=== PATIENT | female | born 1990 | race Caucasian/White ===

== ENCOUNTER 2016-05-21 23:56 | Emergency (ER) | payer OTHER ==
[~2016-05-21] VITALS: Ht 162.6 cm; Wt 73.4 kg
[~2016-05-21 23:56] MED LIST: BACTRIM,SEPT1 TABLET PO; BUSPAR5 MG PO; CEPHALEXIN250 MG PO; CIPRO500 MG PO; FLONASE16 G1 BOTH NARES; GEMFIBROZIL600 MG PO; HUMALOG100 UNIT/1 SC; INSULIN PUMP SCCONT; LISINOPRIL2.5 MG PO; MONTELUKAST SOD10 MG PO; MULTIVITAMIN1 EAC2 PO; MYCOPHENOLATE250 MG PO; NORCO 5/3251 TABLET PO; OMEPRAZOLE20 MG PO; OXAYDO5 MG PO; PERCOCET 5/31 TABLET PO; PRENATAL TABLE1 EAC3 PO; PYRIDIUM100 MG PO; ROXICODONE5 MG PO; SIROLIMUS2 MG PO; TRAMADOL HCL50 MG PO; VIORELE 28 DAY1 EACH PO; VITAMIN E400 UNIT PO; ZOFRAN ODT4 MG PO; ZOFRAN4 MG PO; ZOLOFT25 MG PO
[2016-05-22 00:34] LABS: HEMATOCRIT 41.1 % (36.0-46.0); MCH 26.9 PG (29.0-34.0); MCHC 34.1 G/DL (30.0-36.0); MCV 78.9 FL (83-99); PLATELET COUNT 345 K/uL (156-360); RBC DIS.WIDTH-CV 13.6 % (11.8-14.6); RBC DIS.WIDTH-SD 38.7 % (39-53); RED BLOOD COUNT 5.21 M/uL (3.80-5.20); WHITE BLOOD COUNT 7.2 K/uL (4.1-10.2)
[2016-05-22 00:36] LABS: ADD MIUA? YES; BILIRUBIN NEGATIVE; BLOOD NEGATIVE; COLOR YELLOW ((YELLOW)); GLUCOSE (STRIP) NEGATIVE; KETONES NEGATIVE; LEUKOCYTES SMALL; NITRITE NEGATIVE; PH, URINE 6.5 (5-8); PROTEIN (STRIP) NEGATIVE; SPECIFIC GRAVITY 1.018 (1.000-1.030); UROBILINOGEN 0.2 MG/DL (0.2-1.0)
[2016-05-22 00:44] LABS: CHLORIDE 100 mEq/L (99-109); POTASSIUM 4.3 mEq/L (3.7-5.4); SODIUM 135 mEq/L (136-147)
[2016-05-22 00:47] LABS: GLUCOSE 237 mg/dL (70-99)
[2016-05-22 00:48] LABS: ANION GAP 12 MEQ/L (2-14)
[2016-05-22 00:49] LABS: TOTAL BILIRUBIN 0.4 mg/dL (0.0-1.0)
[2016-05-22 00:50] LABS: ALKALINE PHOSPHATASE 278 IU/L (3-129); GFR ESTIMATE (CALCULATED) > 59 mL/min/
[2016-05-22 00:51] LABS: UREA NITROGEN (BUN) 14 mg/dL (9-23)
[2016-05-22 00:57] LABS: BACTERIA RARE; CASTS NONE SEEN /LPF; CRYSTALS NONE SEEN; EPITHELIAL CELLS RARE; MUCUS NONE SEEN; RED BLOOD CELLS NONE SEEN /HPF (0-5); UCUL ADDED? NO; WHITE BLOOD CELLS 0-5 /HPF (0-5)
[2016-05-22 00:59] LABS: QUANTITATIVE HCG < 4.0 MIU/ML
[2016-05-22 02:05] LABS: LIPASE 43 U/L (1.0-51.0)
[2016-05-22 02:46] LABS: CARBON DIOXIDE (BICARBONATE) 27.3 MEQ/L (20-31)
[2016-05-22 03:01] LABS: POINT-OF-CARE METER ID UU13113778; POINT-OF-CARE USER ID 611181311
[2016-05-22] MEDS ORDERED: PEPCID20 MG PO (03:31)
[2016-05-22 04:27] VITALS: BP 121/83
[2016-05-22 04:28] LABS: POINT-OF-CARE METER ID UU13113778; POINT-OF-CARE USER ID 611181311
== END 2016-05-22 04:27 | disposition home or self-care (01) ==
LOC: EME 23:56 → EXP 23:56
PROVIDERS: Emergency Medicine
DX: E11.65 Type 2 diabetes mellitus with hyperglycemia (principal); K29.70 Gastritis, unspecified, without bleeding; Z96.41 Presence of insulin pump (external) (internal); Z94.0 Kidney transplant status; Z79.4 Long term (current) use of insulin; Z88.6 Allergy status to analgesic agent
CPT/HCPCS: 74176; 80053; 81003; 82009; 82803; 82948; 83690; 84702; 85027; 99281; 99284; J7030; S0028

== ENCOUNTER 2016-07-04 13:37 | Emergency (ER) | payer OTHER ==
[~2016-07-04] VITALS: Ht 162.6 cm; Wt 71.0 kg
[~2016-07-04 13:37] MED LIST changes: +PEPCID20 MG PO
[2016-07-04 15:17] LABS: HEMATOCRIT 45.2 % (36.0-46.0); MCH 26.3 PG (29.0-34.0); MCV 79.9 FL (83-99); MEAN PLAT.VOLUME 11.1 uM^3 (9.5-12.4); PLATELET COUNT 295 K/uL (156-360); RBC DIS.WIDTH-CV 14.1 % (11.8-14.6); RBC DIS.WIDTH-SD 40.7 % (39-53); RED BLOOD COUNT 5.66 M/uL (3.80-5.20); WHITE BLOOD COUNT 4.9 K/uL (4.1-10.2)
[2016-07-04 15:21] LABS: POTASSIUM ND MEQ/L (3.7-5.4)
[2016-07-04 15:26] LABS: CHLORIDE 104 mEq/L (99-109); SODIUM 138 mEq/L (136-147)
[2016-07-04 15:28] LABS: GLUCOSE 140 mg/dL (70-99)
[2016-07-04 15:29] LABS: ANION GAP 11 MEQ/L (2-14)
[2016-07-04 15:32] LABS: GFR ESTIMATE (CALCULATED) > 59 mL/min/
[2016-07-04 15:33] LABS: UREA NITROGEN (BUN) 8 mg/dL (9-23)
[2016-07-04 15:40] LABS: QUANTITATIVE HCG < 4.0 MIU/ML
[2016-07-04 15:43] LABS: ADD MIUA? YES; BILIRUBIN NEGATIVE; BLOOD NEGATIVE; COLOR YELLOW ((YELLOW)); GLUCOSE (STRIP) NEGATIVE; KETONES NEGATIVE; LEUKOCYTES NEGATIVE; NITRITE NEGATIVE; PROTEIN (STRIP) NEGATIVE; SPECIFIC GRAVITY 1.016 (1.000-1.030); UROBILINOGEN 0.2 MG/DL (0.2-1.0)
[2016-07-04 15:58] LABS: BACTERIA NONE SEEN /HPF; EPITHELIAL CELLS 1+ /HPF; MUCUS TRACE /LPF; RED BLOOD CELLS 0-5 /HPF (0-5); UCUL ADDED? NO; WHITE BLOOD CELLS 0-5 /HPF (0-5)
[2016-07-04 16:06] LABS: CARBON DIOXIDE (BICARBONATE) 27.3 MEQ/L (20-31)
[2016-07-04 16:12] LABS: POTASSIUM 4.2 mEq/L (3.7-5.4)
[2016-07-04 17:03] LABS: DIRECT BILIRUBIN 0.1 mg/dL (0.0-0.3); TOTAL BILIRUBIN 0.6 MG/DL (0.0-1.0)
[2016-07-04 17:20] LABS: ALKALINE PHOSPHATASE 319 IU/L (3-129)
[2016-07-04 18:52] LABS: POINT-OF-CARE METER ID UU13113702
[2016-07-04] MEDS ORDERED: OXYCODONE HCL5 MG PO (19:04)
[2016-07-04] MEDS ORDERED: MIRALAX255 GM PO (19:04)
[2016-07-04 20:21] VITALS: BP 113/69
== END 2016-07-04 20:34 | disposition home or self-care (01) ==
LOC: EME 13:37
PROVIDERS: Emergency Medicine; Nurse Practitioner Family
DX: R10.9 Unspecified abdominal pain (principal); K59.00 Constipation, unspecified; E11.9 Type 2 diabetes mellitus without complications; Z94.0 Kidney transplant status; Z96.41 Presence of insulin pump (external) (internal); Z79.4 Long term (current) use of insulin
CPT/HCPCS: 74020; 74176; 80048; 80076; 81003; 82010; 82803; 82948; 84702; 84999; 85027; 87077; 87086; 87502; 99281; 99284; J2405; J3010; J7030

== ENCOUNTER 2016-09-07 01:32 | Emergency (ER) | payer OTHER ==
[~2016-09-07] VITALS: Ht 162.6 cm; Wt 71.8 kg
[~2016-09-07 01:32] MED LIST changes: +MIRALAX255 GM PO; +OXYCODONE HCL5 MG PO
[2016-09-07 02:22] LABS: EOSINOPHIL (%) 0.8 % (0-5); EOSINOPHIL COUNT 0.1 K/uL (0-0.3); HEMATOCRIT 42.8 % (36.0-46.0); IMMATURE GRANULOCYTE (%) 0.2 % (0.0-0.7); INSTRUMENT ABS NEUTROPHIL CT 2.7 K/uL; MCH 26.3 PG (29.0-34.0); MCHC 32.9 G/DL (30.0-36.0); MCV 79.7 FL (83-99); MEAN PLAT.VOLUME 11.1 uM^3 (9.5-12.4); MONOCYTE (%) 11.5 % (3-12); MONOCYTE COUNT 0.8 K/uL (0-0.8); NEUTROPHIL (%) 41.4 % (45-76); NEUTROPHIL COUNT 2.7 K/uL (1.8-6.4); PLATELET COUNT 294 K/uL (156-360); RBC DIS.WIDTH-CV 13.6 % (11.8-14.6); RBC DIS.WIDTH-SD 39.4 % (39-53); RED BLOOD COUNT 5.37 M/uL (3.80-5.20); WHITE BLOOD COUNT 6.6 K/uL (4.1-10.2)
[2016-09-07 02:32] LABS: CHLORIDE 106 mEq/L (99-109); POTASSIUM 4.1 mEq/L (3.7-5.4); SODIUM 136 mEq/L (136-147)
[2016-09-07 02:34] LABS: GLUCOSE 241 mg/dL (70-99)
[2016-09-07 02:35] LABS: ANION GAP 10 MEQ/L (2-14)
[2016-09-07 02:38] LABS: GFR ESTIMATE (CALCULATED) > 59 mL/min/
[2016-09-07 02:39] LABS: UREA NITROGEN (BUN) 15 mg/dL (9-23)
[2016-09-07 02:46] LABS: QUANTITATIVE HCG < 4.0 MIU/ML
[2016-09-07 03:27] LABS: ADD MIUA? YES; BILIRUBIN NEGATIVE; BLOOD NEGATIVE; COLOR YELLOW ((YELLOW)); GLUCOSE (STRIP) 50; KETONES NEGATIVE; LEUKOCYTES SMALL; NITRITE NEGATIVE; PROTEIN (STRIP) NEGATIVE; SPECIFIC GRAVITY 1.017 (1.000-1.030); UROBILINOGEN 0.2 MG/DL (0.2-1.0)
[2016-09-07 03:29] LABS: BACTERIA NONE SEEN /HPF; EPITHELIAL CELLS 1+ /HPF; MUCUS NONE SEEN /LPF; RED BLOOD CELLS 0-5 /HPF (0-5); WHITE BLOOD CELLS 0-5 /HPF (0-5)
[2016-09-07] MEDS ORDERED: OXYCODONE HCL5 MG PO (03:39)
[2016-09-07 04:17] VITALS: BP 135/60
== END 2016-09-07 04:18 | disposition home or self-care (01) ==
LOC: EME 01:32 → EXP 01:32
PROVIDERS: Physician Assistant
DX: M54.5 Low back pain (principal); R53.83 Other fatigue; R68.83 Chills (without fever); Q61.3 Polycystic kidney, unspecified; E11.9 Type 2 diabetes mellitus without complications; Z96.41 Presence of insulin pump (external) (internal); Z79.4 Long term (current) use of insulin; Z94.0 Kidney transplant status
CPT/HCPCS: 80048; 81003; 84702; 85025; 99281; 99283

== ENCOUNTER 2016-12-10 21:24 | Emergency (ER) | payer OTHER ==
[~2016-12-10] VITALS: Ht 162.6 cm; Wt 72.1 kg
[2016-12-10 22:53] LABS: ADD MIUA? YES; BILIRUBIN NEGATIVE; BLOOD NEGATIVE; COLOR YELLOW ((YELLOW)); GLUCOSE (STRIP) NEGATIVE; KETONES NEGATIVE; LEUKOCYTES SMALL; NITRITE NEGATIVE; PROTEIN (STRIP) 30; SPECIFIC GRAVITY 1.025 (1.000-1.030); UROBILINOGEN 0.2 MG/DL (0.2-1.0)
[2016-12-10 23:01] LABS: BACTERIA RARE /HPF; EPITHELIAL CELLS 2+ /HPF; MUCUS TRACE /LPF; RED BLOOD CELLS 0-5 /HPF (0-5); UCUL ADDED? YES
[2016-12-10] MEDS ORDERED: CIPRO500 MG PO (23:19)
[2016-12-10] MEDS ORDERED: ULTRAM50 MG PO (23:24)
[2016-12-10 23:42] VITALS: BP 115/82
== END 2016-12-10 23:44 | disposition home or self-care (01) ==
LOC: EME 21:24
PROVIDERS: Physician Assistant Medical
DX: N39.0 Urinary tract infection, site not specified (principal); Z94.0 Kidney transplant status; E11.9 Type 2 diabetes mellitus without complications; Z96.41 Presence of insulin pump (external) (internal)
CPT/HCPCS: 81003; 87086; 99281; 99284

== ENCOUNTER 2016-12-12 18:22 | Emergency (ER) | payer OTHER ==
[~2016-12-12] VITALS: Ht 162.6 cm; Wt 72.8 kg
[~2016-12-12 18:22] MED LIST changes: +ULTRAM50 MG PO
[2016-12-12 19:21] LABS: HEMATOCRIT 43.1 % (36.0-46.0); MCH 26.3 PG (29.0-34.0); MCHC 32.9 G/DL (30.0-36.0); MCV 79.8 FL (83-99); MEAN PLAT.VOLUME 11.2 uM^3 (9.5-12.4); PLATELET COUNT 267 K/uL (156-360); RBC DIS.WIDTH-CV 13.4 % (11.8-14.6); RBC DIS.WIDTH-SD 38.5 % (39-53); WHITE BLOOD COUNT 5.3 K/uL (4.1-10.2)
[2016-12-12 19:31] LABS: ADD MIUA? YES; BILIRUBIN NEGATIVE; BLOOD NEGATIVE; COLOR YELLOW ((YELLOW)); GLUCOSE (STRIP) >=500; KETONES NEGATIVE; LEUKOCYTES NEGATIVE; NITRITE NEGATIVE; PROTEIN (STRIP) NEGATIVE; SPECIFIC GRAVITY 1.014 (1.000-1.030); UROBILINOGEN 0.2 MG/DL (0.2-1.0)
[2016-12-12 19:35] LABS: CHLORIDE 104 mEq/L (99-109); POTASSIUM 4.1 mEq/L (3.7-5.4); SODIUM 136 mEq/L (136-147)
[2016-12-12 19:35] LABS: BACTERIA RARE /HPF; EPITHELIAL CELLS RARE /HPF; MUCUS TRACE /LPF; RED BLOOD CELLS 0-5 /HPF (0-5); UCUL ADDED? NO; WHITE BLOOD CELLS 0-5 /HPF (0-5)
[2016-12-12 19:37] LABS: GLUCOSE 274 mg/dL (70-99)
[2016-12-12 19:38] LABS: ANION GAP 10 MEQ/L (2-14)
[2016-12-12 19:39] LABS: TOTAL BILIRUBIN 0.9 mg/dL (0.0-1.0)
[2016-12-12 19:40] LABS: ALKALINE PHOSPHATASE 288 IU/L (3-129)
[2016-12-12 19:41] LABS: GFR ESTIMATE (CALCULATED) > 59 mL/min/
[2016-12-12 19:42] LABS: UREA NITROGEN (BUN) 8 mg/dL (9-23)
[2016-12-12 19:50] LABS: QUANTITATIVE HCG < 4.0 MIU/ML
[2016-12-12] MEDS ORDERED: ROXICODONE5 MG PO (21:34)
[2016-12-12 21:54] VITALS: BP 115/75
== END 2016-12-12 22:17 | disposition home or self-care (01) ==
LOC: EME 18:22
PROVIDERS: Physician Assistant
DX: R10.9 Unspecified abdominal pain (principal); G89.29 Other chronic pain; K73.9 Chronic hepatitis, unspecified; E11.65 Type 2 diabetes mellitus with hyperglycemia; Q61.3 Polycystic kidney, unspecified; Z79.4 Long term (current) use of insulin; Z94.0 Kidney transplant status; Z88.5 Allergy status to narcotic agent
CPT/HCPCS: 74176; 80053; 81003; 84702; 85027; 87086; 99281; 99284

== ENCOUNTER 2017-01-16 12:42 | Emergency (ER) | payer OTHER ==
[~2017-01-16] VITALS: Ht 162.6 cm; Wt 70.9 kg
[2017-01-16] MEDS ORDERED: LORTAB 5-325 M1 EACH PO (16:09)
[2017-01-16 16:13] VITALS: BP 122/74
== END 2017-01-16 16:22 | disposition home or self-care (01) ==
LOC: EME 12:42
DX: S93.402A Sprain of unspecified ligament of left ankle, initial encounter (principal); Z94.0 Kidney transplant status; W10.9XXA Fall (on) (from) unspecified stairs and steps, initial encounter; E11.9 Type 2 diabetes mellitus without complications; Z79.4 Long term (current) use of insulin; Q61.3 Polycystic kidney, unspecified; Z88.6 Allergy status to analgesic agent
CPT/HCPCS: 73610; 73630; 99281; 99284

== ENCOUNTER 2017-02-15 00:20 | Emergency (ER) | payer OTHER ==
[~2017-02-15] VITALS: Ht 162.6 cm; Wt 70.9 kg
[~2017-02-15 00:20] MED LIST changes: +LORTAB 5-325 M1 EACH PO
[2017-02-15 00:48] LABS: ADD MIUA? NO; BILIRUBIN NEGATIVE; BLOOD NEGATIVE; COLOR COLORLESS ((YELLOW)); GLUCOSE (STRIP) NEGATIVE; KETONES NEGATIVE; LEUKOCYTES NEGATIVE; NITRITE NEGATIVE; PROTEIN (STRIP) NEGATIVE; SPECIFIC GRAVITY 1.003 (1.000-1.030); UCUL ADDED? NO; UROBILINOGEN 0.2 MG/DL (0.2-1.0)
[2017-02-15 00:57] LABS: HEMATOCRIT 43.5 % (36.0-46.0); MCH 26.2 PG (29.0-34.0); MCHC 32.6 G/DL (30.0-36.0); MCV 80.1 FL (83-99); MEAN PLAT.VOLUME 10.6 uM^3 (9.5-12.4); PLATELET COUNT 315 K/uL (156-360); RBC DIS.WIDTH-CV 13.6 % (11.8-14.6); RBC DIS.WIDTH-SD 38.7 % (39-53); RED BLOOD COUNT 5.43 M/uL (3.80-5.20); WHITE BLOOD COUNT 6.9 K/uL (4.1-10.2)
[2017-02-15 01:19] LABS: CHLORIDE 101 mEq/L (99-109); POTASSIUM 3.7 mEq/L (3.7-5.4); SODIUM 136 mEq/L (136-147)
[2017-02-15 01:21] LABS: GLUCOSE 200 mg/dL (70-99)
[2017-02-15 01:23] LABS: ANION GAP 13 MEQ/L (2-14); TOTAL BILIRUBIN 0.4 mg/dL (0.0-1.0)
[2017-02-15 01:25] LABS: ALKALINE PHOSPHATASE 332 IU/L (3-129); GFR ESTIMATE (CALCULATED) > 59 mL/min/
[2017-02-15 01:26] LABS: UREA NITROGEN (BUN) 8 mg/dL (9-23)
[2017-02-15 01:35] LABS: QUANTITATIVE HCG < 4.0 MIU/ML
[2017-02-15] MEDS ORDERED: COLACE100 MG PO (03:20)
[2017-02-15] MEDS ORDERED: BENTYL10 MG PO (03:20)
[2017-02-15 03:22] VITALS: BP 121/82
== END 2017-02-15 03:24 | disposition home or self-care (01) ==
LOC: EXP 00:20 → EME 00:20 → EXP 03:24
DX: R10.30 Lower abdominal pain, unspecified (principal); G89.29 Other chronic pain; E11.9 Type 2 diabetes mellitus without complications; Z79.4 Long term (current) use of insulin; Z94.0 Kidney transplant status; F32.9 Major depressive disorder, single episode, unspecified; Z88.8 Allergy status to other drugs, medicaments and biological substances
CPT/HCPCS: 76705; 76856; 80053; 81003; 84702; 85027; 99281; 99284; J3010

== ENCOUNTER → 2017-03-12 | Outpatient (CLI) | payer OTHER ==
[~2017-03-12] MED LIST changes: +BENTYL10 MG PO; +COLACE100 MG PO; +DAILY VALUE1 EACH PO; +PROBIOTIC1 EAC2 PO; +SUPER B COMPL400 MCG PO
[2017-03-12 12:01] LABS: POINT-OF-CARE METER ID UU13113819
== END | disposition home or self-care (01) ==
LOC: OPR 08:15 → EDSTATUS 09:00
PROVIDERS: Internal Medicine
PROC: 0FB13ZX Excision of Right Lobe Liver, Percutaneous Approach, Diagnostic (ICD-10-PCS; principal; 2017-03-12)
DX: K76.0 Fatty (change of) liver, not elsewhere classified (principal); Q61.3 Polycystic kidney, unspecified; Z94.0 Kidney transplant status; E10.9 Type 1 diabetes mellitus without complications; F32.9 Major depressive disorder, single episode, unspecified; Z92.25 Personal history of immunosuppression therapy; Z80.0 Family history of malignant neoplasm of digestive organs
CPT/HCPCS: 77012; 82948; 88307; 88313; J2250; J2310; J3010

== ENCOUNTER 2017-05-03 12:16 | Emergency (ER) | payer OTHER ==
[2017-05-04] MEDS ORDERED: CELEBREX50 MG PO (16:05)
== END 2017-05-03 12:22 | disposition left against medical advice (07) ==
LOC: EME 12:16
DX: M25.562 Pain in left knee (principal); Z53.21 Procedure and treatment not carried out due to patient leaving prior to being seen by health care provider

== ENCOUNTER 2017-05-04 13:43 | Emergency (ER) | payer OTHER ==
[~2017-05-04] VITALS: Ht 162.6 cm; Wt 69.5 kg
[2017-05-04] MEDS ORDERED: CELEBREX50 MG PO (16:05)
[2017-05-04 16:47] VITALS: BP 135/80
== END 2017-05-04 16:50 | disposition home or self-care (01) ==
LOC: EME 13:43
DX: M25.562 Pain in left knee (principal); M54.9 Dorsalgia, unspecified; Q61.3 Polycystic kidney, unspecified; Z94.0 Kidney transplant status
CPT/HCPCS: 73564; 99281; 99284

== ENCOUNTER 2017-05-10 20:58 | Emergency (ER) | payer OTHER ==
[~2017-05-10] VITALS: Ht 162.6 cm; Wt 70.1 kg
[~2017-05-10 20:58] MED LIST changes: +CELEBREX50 MG PO
[2017-05-10 21:41] LABS: HEMATOCRIT 39.9 % (36.0-46.0); HEMOGLOBIN 13.2 G/DL (11.9-15.5); MCH 26.7 PG (29.0-34.0); MCHC 33.1 G/DL (30.0-36.0); MCV 80.6 FL (83-99); PLATELET COUNT 319 K/uL (156-360); RBC DIS.WIDTH-CV 13.4 % (11.8-14.6); RED BLOOD COUNT 4.95 M/uL (3.80-5.20); WHITE BLOOD COUNT 7.5 K/uL (4.1-10.2)
[2017-05-10 21:49] LABS: CHLORIDE 104 mEq/L (99-109); POTASSIUM 4.2 mEq/L (3.7-5.4); SODIUM 135 mEq/L (136-147)
[2017-05-10 21:51] LABS: GLUCOSE 319 mg/dL (70-99)
[2017-05-10 21:54] LABS: CREATININE 0.9 mg/dL (0.6-1.3); GFR ESTIMATE (CALCULATED) > 59 mL/min/
[2017-05-10 21:55] LABS: UREA NITROGEN (BUN) 11 mg/dL (9-23)
[2017-05-10 22:03] LABS: QUANTITATIVE HCG 33.6 MIU/ML
[2017-05-10 22:37] VITALS: BP 140/96
== END 2017-05-10 22:37 | disposition home or self-care (01) ==
LOC: EME 20:58
PROVIDERS: Emergency Medicine
DX: O20.0 Threatened abortion (principal); Z3A.00 Weeks of gestation of pregnancy not specified; E11.9 Type 2 diabetes mellitus without complications; F32.9 Major depressive disorder, single episode, unspecified; Q61.3 Polycystic kidney, unspecified; Z79.4 Long term (current) use of insulin; Z96.41 Presence of insulin pump (external) (internal); Z94.0 Kidney transplant status; Z88.5 Allergy status to narcotic agent; Z88.8 Allergy status to other drugs, medicaments and biological substances
CPT/HCPCS: 80048; 84702; 85027; 99281; 99283

== ENCOUNTER 2017-12-08 22:37 | Emergency (ER) | payer OTHER ==
[~2017-12-08] VITALS: Ht 160 cm; Wt 71.3 kg
[2017-12-09 00:45] LABS: APPEARANCE CLEAR ((CLEAR)); BILIRUBIN NEGATIVE; BLOOD NEGATIVE; COLOR AMBER ((YELLOW)); GLUCOSE (STRIP) NEGATIVE; KETONES NEGATIVE; LEUKOCYTES NEGATIVE; NITRITE POSITIVE; PROTEIN (STRIP) NEGATIVE; SPECIFIC GRAVITY 1.016 (1.000-1.030)
[2017-12-09 00:51] LABS: BACTERIA NONE SEEN /HPF; EPITHELIAL CELLS RARE /HPF; MUCUS TRACE /LPF; RED BLOOD CELLS 0-5 /HPF (0-5); UCUL ADDED? YES
[2017-12-09] MEDS ORDERED: ZOFRAN ODT4 MG PO (01:25)
[2017-12-09] MEDS ORDERED: CIPRO500 MG PO (01:25)
[2017-12-09 01:34] VITALS: BP 127/74
== END 2017-12-09 01:35 | disposition home or self-care (01) ==
LOC: EME 22:37
DX: N39.0 Urinary tract infection, site not specified (principal); Z87.440 Personal history of urinary (tract) infections; Z94.0 Kidney transplant status; E11.9 Type 2 diabetes mellitus without complications; Z79.4 Long term (current) use of insulin; Z96.41 Presence of insulin pump (external) (internal)
CPT/HCPCS: 81003; 81025; 87086; 99281; 99284